=== PATIENT | female | born 2000 | race Asian ===

== ENCOUNTER → 2019-09-12 | Outpatient (CLI) | payer OTHER ==
--- NOTE | 2019-09-12 18:14 | RAD ---
EXAM: Ultrasound OB Greater than 14 weeks INDICATION: Anatomy scan in second trimester TECHNIQUE: Real-time obstetrical ultrasound was performed with permanent freeze-frame documentation. COMPARISON: None. FINDINGS: POSITION: Cephalic HEART RATE: 152 bpm MARCIA: 12.7 cm PLACENTA: Posterior CERVICAL LENGTH: Not well seen due to positioning. MATERNAL UTERUS: Unremarkable. MATERNAL ADNEXA: Unremarkable. AGE/DATES: Gestational Age by LMP: 24 weeks and 1 day Gestation Age by US: 26 weeks and 1 day EDC by LMP: January 01, 2020 EDC by US: December 18, 2019 WEIGHT: 852 grams +/- 126 grams PERCENTILE WEIGHT: 68%Unremarkable. BIOMETRIC PARAMETERS: BPD: 6.8 cm corresponding with 27 weeks 2 days HC: 24.0 cm corresponding with 26 weeks 0 days AC: 21.1 cm corresponding with 25 weeks 4 days FL: 4.7 cm corresponding with 25 weeks 5 days ANATOMY: CARDIAC: Normal four chamber heart. Normal right and left ventricular outflow tracts. UMBILICAL CORD: Normal 3 vessel cord. Normal cord insertion. BRAIN: Unremarkable. NOSE/LIPS: Unremarkable. SPINE: Unremarkable. EXTREMITIES: Unremarkable. STOMACH: Unremarkable. KIDNEYS: Unremarkable. BLADDER: Unremarkable. IMPRESSION: Normal OB ultrasound demonstrating a single viable fetus in cephalic position. Estimated gestational age of 26 weeks 1 day and EDC of December 18, 2019. Electronically signed by: Jason Ramos MD (09/12/2019 6:11 PM) [facility]
== END | disposition home or self-care (01) ==
LOC: US 14:17
PROVIDERS: ATTEND Obstetrics & Gynecology
DX: Z34.92 Encounter for supervision of normal pregnancy, unspecified, second trimester (principal); Z3A.26 26 weeks gestation of pregnancy
CPT/HCPCS: 76805

== ENCOUNTER → 2019-09-29 | Outpatient (CLI) | payer OTHER | END | disposition home or self-care (01) | LOC: LAB 14:09 | PROVIDERS: ATTEND Obstetrics & Gynecology | DX: Z34.93 Encounter for supervision of normal pregnancy, unspecified, third trimester (principal); Z3A.28 28 weeks gestation of pregnancy | CPT/HCPCS: 36415; 82947 ==

== ENCOUNTER → 2021-04-25 | Outpatient (CLI) | payer OTHER ==
[2019-12-22 11:00] VITALS: BP 108/74
[~2021-04-25] MED LIST: DOCU-109 PO; IBUP-1060 PO
--- NOTE | 2021-04-26 14:00 | RAD ---
Study: US OB >14 WEEKS Clinical Indication: Second trimester . Anatomy scan. Comparison: None during this gestation. Technique: Multiple grayscale images, color Doppler, and M-mode images of the uterus are obtained. Findings: Single live intrauterine gestation in vertex presentation. The placenta is posterior in location with out placenta previa. Amniotic fluid index of 11 cm. Closed cervic measuring 3.2 cm in length. Biometrical data: BPD = 6.3 cm for 25 weeks 4 days HC = 23.44 cm for 25 weeks 3 days AC = 20.4 cm for 25 weeks 0 days FL = 4.63 cm for 25 weeks 3 days CI ratio = 80 HC/AC ratio = 1.15 FL/HC ratio = 19.8 FL/AC ratio = 22.7 The estimated sonographic gestational age is 25 weeks 3 days for a delivery date of 08/05/2021. The e stimated date of delivery provided by the last menstrual period is 08/15/2021. Estimated weight of 783 grams. 4 chamber heart with cardiac activity. Visualized right and left ventricular outflow tracts. The feta l heart rate of 143 beats per minute. Bilateral upper and lower extremities are identified. Three-vessel cord with cord insertion visualized. stomach and urinary bladder are identified. Both kidneys are seen. The spine, brain and profile are unremarkable. No gross anatomic abnormality. Impression: 1. Single live intrauterine gestation with estimated sonographic gestational age of 25 weeks 3 days corresponding to a delivery date of 08/05/2021. Estimated delivery date by last menstrual period of . Ultrasound age 1 week 3 days greater than clinical age. weight estimate of 783 g +/- 116 g which is at the 65th percentile. 2. Vertex presentation at this time. Posterior placenta without previa. Within normal limits amnioti c fluid volume. Closed cervix measuring 3.2 cm in length. 3. No malformation identified on the survey. Electronically signed by: KELLIE EMERSON MD (04/26/2021 9:38 AM) [id number]
== END ==
LOC: US 15:37
PROVIDERS: ATTEND Obstetrics & Gynecology
DX: Z34.92 Encounter for supervision of normal pregnancy, unspecified, second trimester (principal); Z3A.25 25 weeks gestation of pregnancy
CPT/HCPCS: 76805

== ENCOUNTER → 2021-05-09 | Outpatient (CLI) | payer OTHER ==
[2019-12-22 11:00] VITALS: BP 108/74
[2021-05-09 16:15] LABS: BASO % 0 % (0-3); EOS # 0.1 x10^3/uL (0.0-0.7); EOS % 1 % (0-3); HEMATOCRIT 34.4 % (36.0-47.0); HEMOGLOBIN 11.4 g/dL (12.0-15.5); LYMPH # 1.7 x10^3/uL (1.0-4.8); LYMPH % 16 % (24-48); MEAN CORPUSCULAR HEMOGLOBIN 30 pg (25-35); MEAN CORPUSCULAR HGB CONC 33 g/dL (31-37); MEAN CORPUSCULAR VOLUME 91 fL (79-100); MONO # 0.8 x10^3/uL (0.0-1.1); MONO % 8 % (0-9); NEUT # 7.8 x10^3/uL (1.8-7.7); NEUT % 75 % (31-73); PLATELET COUNT 203 x10^3/uL (140-400); RED BLOOD COUNT 3.78 x10^6/uL (3.50-5.40); RED CELL DISTRIBUTION WIDTH 13.2 % (11.5-14.5); WHITE BLOOD COUNT 10.5 x10^3/uL (4.0-11.0)
[2021-05-09 17:35] LABS: FREE T4 0.87 ng/dL (0.76-1.46); THYROID STIM HORMONE (TSH) 1.301 uIU/mL (0.358-3.74)
[2021-05-12 13:14] LABS: RUBELLA IGG ANTIBODY 2.9 index (Immune >0.99)
== END ==
LOC: LAB 14:25
PROVIDERS: ATTEND Obstetrics & Gynecology
DX: Z34.93 Encounter for supervision of normal pregnancy, unspecified, third trimester (principal); Z3A.00 Weeks of gestation of pregnancy not specified
CPT/HCPCS: 36415; 81220; 82950; 84439; 84443; 85025; 85660; 86592; 86703; 86762; 86787; 86803; 86850; 86900; 86901; 87340